=== PATIENT | male | born 1960 | race Caucasian/White ===

== ENCOUNTER 2019-09-24 05:39 | Outpatient (CLI) | payer OTHER ==
[~2019-09-24] VITALS: Ht 162.6 cm; Wt 63.6 kg
== END 2019-09-24 13:57 ==
LOC: PREOP 05:39
PROVIDERS: ATTEND Surgery
DX: Z01.818 Encounter for other preprocedural examination (principal)

== ENCOUNTER 2019-10-02 06:17 | Day surgery (SDC) | payer OTHER ==
[2019-10-02] VITALS (10 sets, daily range): BP systolic 104–138; BP diastolic 51–91
[~2019-10-02] VITALS: Ht 162.6 cm; Wt 63.6 kg
[2019-10-02] MEDS ORDERED: ceFAZolin INJECTION 1,000 MG in WATER (STERILE) FOR INJECTION 10 ML IV ONE (06:45)
[2019-10-02] MEDS ORDERED: CATHETER FLUSH 10 ML SYR IV PRN (07:00)
[2019-10-02] MEDS: LACTATED RINGERS 1,000 ML IV PRN ×2 (07:05→08:45)
[2019-10-02] MEDS ORDERED: BUP/EPI 0.5% 1:200,000 (SENSORCAINE) 30 ML VIAL ONE (07:20)
[2019-10-02] MEDS ORDERED: MIDAZOLAM 2 MG/2 ML (VERSED) VIAL ONE (07:31)
[2019-10-02] MEDS ORDERED: fentaNYL INJECTION 100 MCG/2 ML AMP ONE (07:31)
[2019-10-02] MEDS ORDERED: proPOfol 200 MG/20 ML (DIPRIVAN) VIAL IV ONE (09:06)
[2019-10-02] MEDS ORDERED: DEXAMETHASONE 10 MG/ML (DECADRON) 1 ML VIAL ONE (09:06)
[2019-10-02] MEDS ORDERED: LIDOCAINE PF 2% 5 ML (XYLOCAINE) VIAL ONE (09:06)
[2019-10-02] MEDS ORDERED: SEVOFLURANE (ULTANE) 15 ML INHAL SOLN ONE (09:06)
[2019-10-02] MEDS ORDERED: PHENYLEPHRINE 100 MCG/ML 10 ML (ANESTHESIA) SYR ONE (09:06)
[2019-10-02] MEDS ORDERED: ONDANSETRON 4 MG/2 ML (SDV) Z0FRAN ONE (09:06)
--- NOTE | 2019-10-02 09:07 | Progress Note-Post Operative ---
Post-Operative Progess Note Surgeon (s)/Slot Tag Inserter (s) Surgeon ARAVIND PONCE DO Slot Tag Inserter: na Pre-Operative Diagnosis RIGHT INGUINAL HERNIA Post-Operative Diagnosis direct right inguinal hernia Procedure & Operative Findings Date of Procedure 10/02/19 Procedure Performed/Findings open right inguinal hernia Anesthesia Type gen Estimated Blood Loss Estimated blood loss (mL): min Specimens/Packing Specimens Removed na ARAVIND PONCE DO Oct 02, 2019 09:07
[2019-10-02] MEDS ORDERED: ACHD5005 PO (09:09)
[2019-10-02] MEDS ORDERED: DOCU-143 PO (09:09)
--- NOTE | 2019-10-02 09:22 | Discharge Inst-Simple/Standard ---
Discharge Inst-Standard Discharge Medications New, Converted or Re-Newed RX: RX on Chart Patient Instructions/Follow Up Plan of Care/Instructions/FU: 3 weeks Jennifer Activity as Tolerated: Yes Discharge Diet: Regular Diet Other Inst to Patient Follow up Appt: Make appointment for 3 weeks. Instructions: No lifting greater than 10 pounds. No strenuous activity. May shower in 24 hours, no tub bath or soaking. Use incentive spirometer at home as directed. No Smoking Skin/Wound Care: You have special glue. Symptoms to Report: Appetite Changes, Extremity Discoloration, Numbness/Tingling, Swelling Increased, Bleeding Excessive, Eyesight Changes, Pain Increased, Urine Color Change, Constipation(Persistent), Fever over 101 degree F, Pain/Pressure in chest, Urinating Difficulty, Cough Up/Vomit Blood, Heart Beat Irreg/Pounding, Pain/Pressure in jaw, Vaginal Bleeding Increase, Cramps in feet or legs, Lightheadedness, Pain/Pressure in shoulder, Diarrhea(Persistent), Memory Changes Suddenly, Questions/Concerns, Weight gain consecutive days, Dizziness/Fainting, Nausea/Vomiting, Shortness of Breath, Weight gain over 2 pounds If questions or concerns contact your physician Or seek help at emergency department. ARAVIND PONCE DO Oct 02, 2019 09:14
--- NOTE | 2019-10-02 10:19 | Anesthesia-General Post-Op ---
General Patient Condition Mental Status/LOC: Same as Preop Cardiovascular: Satisfactory Nausea/Vomiting: Absent Respiratory: Satisfactory Pain: Controlled Complications: Absent Post Op Complications Complications None Follow Up Care/Instructions Patient Instructions None needed. Anesthesia/Patient Condition Patient Condition Patient is doing well, no complaints, stable vital signs, no apparent adverse anesthesia problems. No complications reported per nursing. KEMAL PICHARDO CRNA Oct 02, 2019 10:19
--- NOTE | 2019-10-02 23:52 | OPERATIVE REPORT ---
DATE OF SERVICE: 10/02/2019 PREOPERATIVE DIAGNOSIS: Right inguinal hernia. POSTOPERATIVE DIAGNOSIS: Direct right inguinal hernia. SURGEON: Aravind Rodriguez DO ANESTHESIA: General. ESTIMATED BLOOD LOSS: Minimal. COMPLICATIONS: None. INDICATIONS: The patient is a 59-year-old male with a right inguinal hernia. He understands risks and benefits of procedure and wished to proceed with procedure. Consent was signed in the chart. DESCRIPTION OF PROCEDURE: The patient was taken to the operating suite, was prepped and draped in sterile fashion. Timeout was performed. Local anesthetic was infiltrated in the right lower quadrant and a 15 blade scalpel was used to make a skin incision and cautery used to dissect down to the external oblique. The external oblique was then opened up through the external ring. The spermatic cord was then dissected around. [place] drain was placed around it. No indirect defect present. A moderate sized direct defect present. The hernia contents were then mobilized and reduced. The defect was then closed with 2-0 Vicryl suture using the shelving edge in transversalis fascia. Once this was closed, a ProGrip mesh was then cut to size and then secured to Donavan's ligament and then incorporated around the spermatic cord and placed under the external oblique. The wound was then irrigated with copious amounts of irrigation. The external oblique was then closed with 3-0 Vicryl, recreating the external ring. The Syed's fascia was then reapproximated using 3-0 Vicryl. Skin was then closed using 4-0 Monocryl. The area was washed and dried and Skin Affix was placed over the incision. The patient tolerated procedure well without any complications. He was taken to recovery room in stable condition. Job ID: [id number] DocumentID: [id number] Dictated Date: 10/02/2019 15:31:30 Terrazzo Layer Date: 10/02/2019 23:51:20 Dictated By: ARAVIND RODRIGUEZ DO
== END 2019-10-02 11:15 | disposition home or self-care (01) ==
LOC: SDC 06:17
PROVIDERS: ATTEND Surgery
DX: K40.90 Unilateral inguinal hernia, without obstruction or gangrene, not specified as recurrent (principal)
CPT/HCPCS: 87081; 94664